=== PATIENT | male | born 1945 | race Caucasian/White ===

== ENCOUNTER 2017-01-08 07:05 | Day surgery (SDC) | payer MEDICARE ==
[~2017-01-08] VITALS: Ht 182.9 cm; Wt 109.6 kg
[2017-01-08 07:43] VITALS: BP 119/69; PULSE 49; RESP 16; TEMP 98.2; O2SAT 96
[2017-01-08] MEDS ORDERED: ASPI1TAB69 PO (07:54)
[2017-01-08] MEDS ORDERED: METF500T PO (07:54)
[2017-01-08] MEDS ORDERED: MULT1TAB84 PO (07:54)
[2017-01-08] MEDS ORDERED: MELO-1 PO (07:54)
[2017-01-08] MEDS ORDERED: ENAL5TAB PO (07:54)
[2017-01-08] MEDS ORDERED: NITR1SUB3 SL (07:54)
[2017-01-08] MEDS ORDERED: LORA-361 PO (07:54)
[2017-01-08] MEDS ORDERED: ATOR40TA16 PO (07:54)
[2017-01-08 07:57] LABS: AUTOMATED NEUTROPHIL # 1.9 TH/MM3 (1.8-7.7); BASOPHIL % 1.4 % (0.0-2.0); EOSINOPHIL % 1.4 % (0.0-4.0); HEMATOCRIT 38.8 % (39.0-51.0); HEMO FLAGS DIFF FINAL; LYMPH % 30.2 % (9.0-44.0); MEAN CELL VOLUME 94.1 FL (80.0-100.0); MEAN CORPUSCULAR HEMOGLOBIN 32.5 PG (27.0-34.0); MEAN CORPUSCULAR HGB CONC 34.6 % (32.0-36.0); MONO % 10.1 % (0.0-8.0); NEUT % 56.9 % (16.0-70.0); PLATELET COUNT 159 TH/MM3 (150-450); RED BLOOD COUNT 4.13 MIL/MM3 (4.50-5.90); RED CELL DISTRIBUTION WIDTH 13.4 % (11.6-17.2); WHITE BLOOD COUNT 3.4 TH/MM3 (4.0-11.0)
[2017-01-08] MEDS ORDERED: NS 1000P @30 MLS/HR (KVO) IV SCH (08:00)
[2017-01-08 08:07] LABS: APTT (PATIENT) 25.9 SEC (24.3-30.1); BICARBONATE 27.6 MEQ/L (21.0-32.0); POTASSIUM 4.1 MEQ/L (3.5-5.1); PROTHROMBIN TIME - PATIENT 10.7 SEC (9.8-11.6)
[2017-01-08] MEDS ORDERED: MIDAZOLAM HCL 2 MG/2 ML VIAL ONE (09:11)
[2017-01-08] MEDS ORDERED: HEPARIN-NS/PF INJ 500 ML ONE (09:11)
[2017-01-08] MEDS ORDERED: SODIUM CHLOR 0.9% 1000 ML INJ 1,000 ML IV SCH (10:18)
[2017-01-08] MEDS ORDERED: SODIUM CHLORIDE 0.9% FLUSH 5 ML FLUSH IVF PRN (10:30)
[2017-01-08] MEDS ORDERED: oxyCODONE/ACETAMINOPHEN 5 MG/325 MG TAB PO PRN (10:30)
[2017-01-08] MEDS ORDERED: ONDANSETRON HCL 4 MG/2 ML VIAL IV PRN (10:30)
--- NOTE | 2017-01-08 10:30 | MA ---
cc: CHRISTI BONNER M.D. DATE: 01/08/2017 PROCEDURE PERFORMED 1. Coronary angiography. 2. Right heart catheterization. 3. Supravalvar aortography. 4. Right femoral angiography with Angio-Seal placement. DESCRIPTION OF PROCEDURE The patient was brought to the cardiac terrazzo laborer in a fasting state. Using 1% lidocaine for local anesthesia a 6.5 Sammarinese sheath was inserted in the right femoral artery and right femoral vein requiring only single sticks each. Right heart catheterization was performed in a standard fashion using a Nelson-Reta catheter. Coronary angiography was then completed using a left 5 Imelda for the left coronary artery and a 3-D RC for the right coronary artery. A straight pigtail catheter was then used to obtain a supravalvular aortogram. Angiography was then obtained of the right femoral artery via the sheath followed by uncomplicated Angio-Seal placement. There were no complications. The venous sheath was pulled manually. FINDINGS HEMODYNAMICS Right atrial pressure was 8/6 with a mean of 3. Right ventricular pressure was 37/0 with an end-diastolic pressure of 4. Pulmonary artery pressure was 24/5 with a mean of 12. Pulmonary capillary wedge pressure was 11/12 with a mean of 8. Aortic pressure was 125/56 with a mean of 81. Cardiac output by thermodilution technique was 5.3 liters per minute. SUPRAVALVULAR AORTOGRAPHY The aortic valve was tricuspid. There was only mild calcification seen. There was no aortic regurgitation. CORONARY ANGIOGRAPHY The coronary circulation is right-dominant. The coronary arteries appear completely normal. The left main trifurcates into the LAD. The LAD appears normal. The ramus intermediate branch is normal The circumflex artery is small and normal. The right coronary artery is dominant and normal. CONCLUSIONS 1. Known severe aortic stenosis that has now become symptomatic with dyspnea on exertion. 2. Normal right heart pressures. 3. Normal coronary arteries. PLAN Refer Dr. Woo for AVR. MD PAL Stephens/THONG /10:16 AM /10:21 AM
[2017-01-08] MEDS ORDERED: IOHEXOL 350 MG/ML 100 ML BTL (for Cath Lab) OTHER ONE (11:37)
--- NOTE | 2017-01-08 12:56 | RADRPT ---
EXAM DATE/TIME: 01/08/2017 11:48 [facility] COMPARISON: No previous studies available for comparison. INDICATIONS : PreOp cardiac surgery. MEDICAL HISTORY : Hypertension. Diabetes. SURGICAL HISTORY : Cardiac catheterization. ENCOUNTER: Initial ACUITY: 1 day PAIN SCORE: 0/10 LOCATION: Bilateral neck PEAK SYSTOLIC VELOCITIES (cm/sec): ICA/CCA RATIO: Right: 1.1 Left: 1.0 ICA: Right: 95 Left: 91 CCA: Right: 90 Left: 93 ECA: Right: 85 Left: 91 VERTEBRAL: Right: 77 antegrade Left: 38 antegrade Elevated flow velocities and ICA/CCA ratios have been found to correlate with increased degrees of vessel stenosis, calculated as percentage of diameter relative to a normal segment of distal ICA/CCA FINDINGS: RIGHT CAROTID: There is no evidence for a hemodynamically significant carotid stenosis. Minimal int imal hyperplasia is present with scattered calcific plaque. LEFT CAROTID: There is no evidence for a hemodynamically significant carotid stenosis. Minimal inti mal hyperplasia is present with scattered calcific plaque. VERTEBRAL ARTERIES: Flow is antegrade in both vertebral arteries. MISCELLANEOUS: There are no ancillary masses or adenopathy. CONCLUSION: Negative examination for a hemodynamically significant carotid stenosis. Christ Sullivan MD FACR Board Certified Radiologist. This report was verified electronically.
[2017-01-08 14:17] LABS: BLOOD, URINE NEG (NEG); GLUCOSE,URINE NEG (NEG); KETONE, URINE NEG (NEG); NITRITE,URINE NEG (NEG); URINE COLOR LIGHT-YELLOW (YELLW/STRAW)
[2017-01-08 14:18] LABS: COMMENT (UR) CULT NOT INDICATED; CULTURE IF INDICATED CULT NOT INDICATED
--- NOTE | 2017-01-08 14:22 | PD.CAR.PN ---
CVT Progress Note Subjective/Hospital Course: sts discussed with pt RISK SCORES About the STS Risk Calculator Procedure: AV Replacement Risk of Mortality: 1.069% Morbidity or Mortality: 10.509% Long Length of Stay: 3.398% Short Length of Stay: 52.422% Permanent Stroke: 0.815% Prolonged Ventilation: 5.115% DSW Infection: 0.332% Renal Failure: 2.984% Reoperation: 5.408% Objective: Vital Signs Date Time Temp Pulse Resp B/P Pulse Ox O2 Delivery O2 Flow Rate FiO2 01/08/17 10:27 Room Air 01/08/17 07:43 98.2 49 16 119/69 96 Labs: Laboratory Tests Test 01/08/17 01/08/17 07:40 13:45 White Blood Count 3.4 TH/MM3 (4.0-11.0) Red Blood Count 4.13 MIL/MM3 (4.50-5.90) Hemoglobin 13.4 GM/DL (13.0-17.0) Hematocrit 38.8 % (39.0-51.0) Mean Corpuscular Volume 94.1 FL (80.0-100.0) Mean Corpuscular Hemoglobin 32.5 PG (27.0-34.0) Mean Corpuscular Hemoglobin 34.6 % Concent (32.0-36.0) Red Cell Distribution Width 13.4 % (11.6-17.2) Platelet Count 159 TH/MM3 (150-450) Mean Platelet Volume 8.9 FL (7.0-11.0) Neutrophils (%) (Auto) 56.9 % (16.0-70.0) Lymphocytes (%) (Auto) 30.2 % (9.0-44.0) Monocytes (%) (Auto) 10.1 % (0.0-8.0) Eosinophils (%) (Auto) 1.4 % (0.0-4.0) Basophils (%) (Auto) 1.4 % (0.0-2.0) Neutrophils # (Auto) 1.9 TH/MM3 (1.8-7.7) Lymphocytes # (Auto) 1.0 TH/MM3 (1.0-4.8) Monocytes # (Auto) 0.3 TH/MM3 (0-0.9) Eosinophils # (Auto) 0.0 TH/MM3 (0-0.4) Basophils # (Auto) 0.0 TH/MM3 (0-0.2) CBC Comment DIFF FINAL Differential Comment Prothrombin Time 10.7 SEC (9.8-11.6) Prothromb Time International 1.0 RATIO Ratio Activated Partial 25.9 SEC Thromboplast Time (24.3-30.1) Sodium Level 141 MEQ/L (136-145) Potassium Level 4.1 MEQ/L (3.5-5.1) Chloride Level 106 MEQ/L (98-107) Carbon Dioxide Level 27.6 MEQ/L (21.0-32.0) Anion Gap 7 MEQ/L (5-15) Blood Urea Nitrogen 14 MG/DL (7-18) Creatinine 0.87 MG/DL (0.60-1.30) Estimat Glomerular Filtration 87 ML/MIN (>89) Rate Random Glucose 157 MG/DL (74-106) Calcium Level 8.7 MG/DL (8.5-10.1) Urine Color LIGHT-YELLOW (YELLW/STRAW) Urine Turbidity CLEAR (CLEAR) Urine pH 7.0 (5.0-8.5) Urine Specific [place] 1.020 (1.002-1.035) Urine Protein NEG mg/dL (NEG-TRACE) Urine Glucose (UA) NEG mg/dL (NEG) Urine Ketones NEG mg/dL (NEG) Urine Occult Blood NEG (NEG) Urine Nitrite NEG (NEG) Urine Bilirubin NEG (NEG) Urine Urobilinogen LESS THAN 2.0 MG/DL (LESS THAN 2.0) Urine Leukocyte Esterase NEG (NEG) Microscopic Urinalysis Comment CULT NOT INDICATED Result Diagram: 01/08/17 0740 01/08/17 0740 Noy Munoz Jan 08, 2017 14:22
--- NOTE | 2017-01-08 15:34 | RADRPT ---
EXAM DATE/TIME: 01/08/2017 15:15 [facility] COMPARISON: No previous studies available for comparison. INDICATIONS : Evaluate for pneumonia, pneumothorax, and commicable disease. Pre op for heart valve replacement. MEDICAL HISTORY : Prior right side rib fracture with chest tube placement. SURGICAL HISTORY : None. ENCOUNTER: Initial ACUITY: 1 day PAIN SCORE: 0/10 LOCATION: Bilateral chest FINDINGS: PA and lateral views of the chest demonstrate the lungs to be symmetrically aerated without evidence of mass, infiltrate or effusion. The cardiomediastinal contours are unremarkable. Old rib fractures as seen on the right. CONCLUSION: No acute disease. Christ Sullivan MD FACR on January 08, 2017 at 15:29 Board Certified Radiologist. This report was verified electronically.
--- NOTE | 2017-01-08 15:38 | MB ---
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 He has been able to do some exercising but has had a little bit of intolerance. Denies having any syncope. No presyncope. No chest pain. No palpitations. He underwent cardiac cath today after having a recent 2-D echo which showed an EF of 65-70%, mild LVH. Aortic valve had a peak gradient of 70, a mean gradient of 37 mmHg, valve area 0.73, mild mitral regurgitation, trivial tricuspid regurgitation. Apparently the mean gradient was 29 in October 2015 and now is 37. He underwent cardiac cath today by Dr. Leggett electively which showed no evidence of coronary disease, right-sided heart pressures had a right atrial pressure of 8/6 with a mean of 3, RV systolic pressure 37 with an end-diastolic of 4, PA pressure 24 with a mean of 12, capillary wedge pressure of 11 and cardiac output 5.3. The aortic valve was tricuspid with only mild calcification. Coronary arteriography showed right dominant system. We were consulted to evaluate for aortic valve replacement. PAST MEDICAL HISTORY 1. Aortic stenosis. 2. Sleep apnea. He uses a CPAP at night but has not had to in a while since he lost about 15 pounds. His says he does not snore any more. 3. Diabetes mellitus type 2. 4. Hyperlipidemia. 5. History of prostate cancer 2010. 6. Skin cancer. PAST SURGICAL HISTORY 1. Cataract surgery. 2. History of a collapsed lung in the past. 3. Prostate seed implant with radiation therapy in 2011. ALLERGIES HE HAS HAD SOME NAUSEA RELATED TO ANESTHESIA, APPARENTLY SOME LOW TOLERANCE BUT NO ANAPHYLAXIS NO RASH. MEDICATIONS Home meds include: 1. Aspirin 81, daily. 2. Atorvastatin 40, daily. 3. Claritin. 4. Enalapril 5, p.o. daily. 5. Fish oil. 6. Mobic. 7. Metformin 500, b.i.d. FAMILY HISTORY Father at 96 with history of coronary artery bypass graft and valve replacement. Mother from CHF. SOCIAL HISTORY The patient is , two children. Occasional alcohol. 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 No tobacco. REVIEW OF SYSTEMS GENERAL: In general no night sweats, fever, heat or cold intolerance. SKIN: No psoriasis, itching or hives. HEENT: No blurred vision, hearing loss. RESPIRATORY: Positive for recent shortness of breath. CARDIOVASCULAR: As above in the HPI. GASTROINTESTINAL: No diarrhea or vomiting. GENITOURINARY: No burning, frequency, urgency. 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 ENDOCRINE: Positive for diabetes. PHYSICAL EXAMINATION VITAL SIGNS: Blood pressure 120/70, heart rate 50, afebrile. GENERAL: Patient is awake and alert, in no acute distress. HEENT: Head is normocephalic, atraumatic. Pupils equal and reactive. Oral mucosa pink and moist. NECK: Supple. No JVD. HEART: Heart sounds S1, S2. 2-3/6 systolic murmur best heard on the right sternal border. LUNGS: Clear to auscultation. No wheezes, rales or rhonchi. ABDOMEN: Soft, nontender. No masses or organomegaly. He has a dressing on his right groin from his cath site. EXTREMITIES: No cyanosis, clubbing or edema. LABORATORY Hemoglobin 13, hematocrit 38, white cell count 3.4, platelet count 159. Sodium 141, potassium 4.1, BUN 14, creatinine 0.87. Hemoglobin A1c is pending. INR 1.0. Urinalysis pending. MRSA pending. IMAGING Carotid ultrasound negative for any significant stenosis. EKG EKG showed sinus bradycardia, nonspecific T-wave. IMPRESSION AND PLAN This is a very pleasant 71-year-old male with history of aortic stenosis now with a valve area 0.73, peak gradient of 69 and a mean gradient of 37, status post cath with normal coronaries, EF 60-65. Procedures, alternatives and risks have been discussed with the patient per Dr. Diana Woo. Plan will be for aortic valve replacement on FridayJanuary 14. The patient will have further testing prior to discharge. He is agreeable to proceed. Will plan as above. Further planning per Dr. Woo. Dictated by: GRUPO Krishnan Diana MD RAMÓN Miller /2:27 PM /3:36 PM
[2017-01-08 17:16] LABS: HEMOGLOBIN A1a 1.1 %; HEMOGLOBIN A1b 0.9 %; HEMOGLOBIN F 1.3 %; HEMOGLOBIN LA1C 2.3 %
--- NOTE | 2017-01-08 18:26 | EKG ---
Date Performed: 01/08/2017 Time Performed: 07:53:16 PTAGE: 71 years EKG: Sinus bradycardia Minimal ST elevations, possible early repolarization Borderline ECG NO PREVIOUS TRACING DOCTOR: Matthew Roach Interpretating Date/Time 01/08/2017 18:23:59
--- NOTE | 2017-01-08 19:54 | EKG ---
Date Performed: 01/08/2017 Time Performed: 12:12:48 PTAGE: 71 years EKG: Sinus bradycardia Septal T wave changes are nonspecific Borderline ECG NO SIGNIFICANT GARDUNO E FROM PRIOR ELECTROCARDIOGRAM. PREVIOUS TRACING : 01/08/2017 07.53 DOCTOR: Kailash Denton Interpretating Date/Time 01/08/2017 19:53:35
[2017-01-08 20:21] LABS: HEMOGLOBIN Ao 82.8 %
[2017-01-08] MEDS ORDERED: SODIUM CHLORIDE 0.9% FLUSH 5 ML FLUSH IVF SCH (21:00)
--- NOTE | 2017-03-12 14:09 | RSPPFT ---
DATE OF PROCEDURE: 01/08/17 COMMENTS: VOLUMES DYNAMIC: FVC and FEV1 normal. FLOWS: FEV1% and FEF 25-75 normal. IMPRESSION: Normal simple spirometry.
== END 2017-01-08 15:30 | disposition home or self-care (01) ==
LOC: HDOC 07:05 → HDIC 07:06 → HDOC 15:30
PROVIDERS: ATTEND Internal Medicine Cardiovascular Disease
DX: I35.0 Nonrheumatic aortic (valve) stenosis (principal); I34.0 Nonrheumatic mitral (valve) insufficiency; I10 Essential (primary) hypertension; E11.9 Type 2 diabetes mellitus without complications; E78.5 Hyperlipidemia, unspecified; Z79.82 Long term (current) use of aspirin; Z79.84 Long term (current) use of oral hypoglycemic drugs; Z85.46 Personal history of malignant neoplasm of prostate; Z85.828 Personal history of other malignant neoplasm of skin; Z01.818 Encounter for other preprocedural examination
CPT/HCPCS: 71020; 80048; 81001; 83036; 85025; 85610; 85730; 87641; 93005; 93456; 93567; 93880; 94010; C1760; C1769; C1893; G0269; J1644; J2250; Q9967

== ENCOUNTER 2017-01-10 15:01 | Inpatient (IN) | payer MEDICARE ==
[~2017-01-10] VITALS: Ht 185.4 cm; Wt 111.5 kg
[~2017-01-10 15:01] MED LIST: ASPI1TAB69 PO; ATOR40TA16 PO; ENAL5TAB PO; LORA-361 PO; MELO-1 PO; METF500T PO; MULT1TAB84 PO; NITR1SUB3 SL
[2017-01-14] VITALS (11 sets, daily range): BP systolic 102–132; BP diastolic 54–66; PULSE 53–67; RESP 16–20; TEMP 98.1–98.6; O2SAT 94–99
[2017-01-14] MEDS ORDERED: VECURONIUM BROMIDE 10 MG VIAL IV ONE (05:00)
[2017-01-14] MEDS ORDERED: ETOMIDATE 40 MG/20 ML VIAL IV PUSH ONE (05:00)
[2017-01-14] MEDS ORDERED: CALCIUM GLUCONATE 10% 1 GM/10 ML VIAL IV ONE (05:00)
[2017-01-14] MEDS ORDERED: MAGNESIUM SULFATE 1000 MG/2 ML VIAL (PED) IV ONE (05:00)
[2017-01-14] MEDS ORDERED: AMINOCAPROIC ACID INJ 250 MG/ML 20 ML VIAL IV ONE ×2 (05:00→12:31)
[2017-01-14] MEDS ORDERED: DEXMEDETOMIDINE INJ 50 ML IV ONE (05:00)
[2017-01-14] MEDS ORDERED: CALCIUM CHLORIDE 10% SOLN 1 GRAM/10 ML SYR IV ONE (05:00)
[2017-01-14] MEDS ORDERED: ARTIFICIAL TEARS OPTH OINT 3.5 APPLIC/3.5 GM TUBO ONE (05:00)
[2017-01-14] MEDS ORDERED: ceFAZolin INJ 1,000 MG VIAL IV ONE ×3 (05:00→13:29)
[2017-01-14] MEDS ORDERED: HEPARIN SODIUM - SQ 10,000 UNITS/ML VIAL SQ ONE (05:00)
[2017-01-14] MEDS ORDERED: GLYCOPYRROLATE 0.2 MG/ML VIAL IV ONE (05:00)
[2017-01-14] MEDS ORDERED: PROTAMINE SULFATE 250 MG/25 ML VIAL IV ONE (05:00)
[2017-01-14] MEDS ORDERED: NITROGLYCERIN-DEXTROSE INJ 250 ML IV ONE (05:00)
[2017-01-14] MEDS ORDERED: DOPamine INJ PREMIX 500 ML IV ONE (05:00)
[2017-01-14] MEDS ORDERED: PHENYLEPHRINE HCL 10 MG/ML VIAL IV ONE (05:00)
[2017-01-14] MEDS ORDERED: LIDOCAINE HCL 1% 30 ML VIAL OTHER ONE (05:00)
[2017-01-14] MEDS ORDERED: POTASSIUM CHLORIDE 20 MEQ/10 ML VIAL ONE (06:26)
[2017-01-14] MEDS ORDERED: CUSTODIOL HTK IRR SOLN 1,000 ML ONE (06:26)
[2017-01-14] MEDS ORDERED: MANNITOL INJ 50 ML ONE (06:27)
[2017-01-14] MEDS ORDERED: SODIUM BICARBONATE 8.4% INJ 50 ML ONE (06:27)
[2017-01-14] MEDS ORDERED: ALBUMIN HUMAN 25% 12.5 GM/50 ML BAGP IV ONE (06:28)
[2017-01-14] MEDS ORDERED: HEPARIN SODIUM - SQ 10,000 UNITS/ML VIAL ONE ×2 (06:28→08:00)
[2017-01-14] MEDS ORDERED: HEPARIN SODIUM - IV 10,000 UNITS/10 ML VIAL ONE ×2 (06:28→15:46)
[2017-01-14] MEDS ORDERED: METOPROLOL TARTRATE 25 MG TAB ONE (06:29)
[2017-01-14] MEDS: LACTATED RINGER'S 1000 ML IV SCH ×2 (06:30→10:55)
[2017-01-14] MEDS: SODIUM CHLORID 0.9% 500 ML IV SCH ×2 (06:45→10:56)
[2017-01-14] MEDS ORDERED: INSULIN REGULAR 100 UNITS in NS 100 ML IV SCH (06:45)
[2017-01-14] MEDS ORDERED: CHLORHEXIDINE GLUCONATE 4% SOLN 120 ML BTL TOPICAL SCH (06:45)
[2017-01-14] MEDS ORDERED: ceFAZolin 2 GM PREMIX 50 ML IV SCH (06:45)
[2017-01-14] MEDS ORDERED: METOPROLOL TARTRATE 25 MG TAB PO PRN (06:45)
[2017-01-14] MEDS ORDERED: CEFAZOLIN 500 MG in NS IRR BTL 500 ML IRRIGATION SCH (06:45)
[2017-01-14] MEDS ORDERED: INSULIN HUMAN REGULAR 1,000 UNITS/10 ML VIAL SQ PRN (06:45)
[2017-01-14] MEDS ORDERED: NATU400T PO (06:59)
[2017-01-14] MEDS: METOPROLOL TARTRATE 25 MG TAB PO SCH ×2 (07:00→07:18)
[2017-01-14] MEDS ORDERED: VANCOMYCIN HCL 1000 MG VIAL ONE (07:59)
[2017-01-14] MEDS ORDERED: methylPREDNISolone SOD SUCC 125 MG/2 ML VIAL ONE (08:00)
[2017-01-14] MEDS ORDERED: BUPIVACAINE HCL PF 0.5% 30 ML VIAL ONE (08:24)
[2017-01-14] MEDS ORDERED: SODIUM CHLOR 0.9% 1000 ML INJ 2,000 ML IV ONE (12:31)
[2017-01-14] MEDS ORDERED: SODIUM CHLORID 0.9% 500 ML INJ 500 ML IV ONE (12:31)
[2017-01-14] MEDS ORDERED: SODIUM CHLOR 0.9% 250 ML INJ 250 ML IV ONE (12:31)
[2017-01-14] MEDS ORDERED: LACTATED RINGER'S 1000 ML INJ 2,000 ML IV ONE (12:31)
[2017-01-14] MEDS ORDERED: SODIUM CHLORIDE 0.9% INJ 100 ML IV ONE (12:31)
[2017-01-14] MEDS ORDERED: POTASSIUM CHLOR 40 MEQ PREMIX 100 ML ONE (15:46)
[2017-01-14] MEDS ORDERED: LACTATED RINGER'S 1000 ML INJ 500 ML IV PRN (16:31)
[2017-01-14] MEDS ORDERED: METOPROLOL TARTRATE 5 MG/5 ML VIAL IV PUSH PRN (16:45)
[2017-01-14] MEDS ORDERED: ONDANSETRON HCL 4 MG/2 ML VIAL IV PUSH PRN (16:45)
[2017-01-14] MEDS ORDERED: Post-op Orders (for Pharmacy) MISC OTHER ONE (16:45)
[2017-01-14] MEDS ORDERED: MAGNESIUM SULFATE INJ 2 GM in SODIUM CHLORIDE 0.9% INJ 100 ML IV PRN ×4 (16:45)
[2017-01-14] MEDS ORDERED: DEXTROSE 50% IN WATER 50 ML VIAL(D50) IV PUSH PRN (16:45)
[2017-01-14] MEDS ORDERED: CALCIUM CHLORIDE INJ 1 GM in SODIUM CHLORIDE 0.9% INJ 100 ML IV PRN (16:45)
[2017-01-14] MEDS ORDERED: POTASSIUM CHLORIDE 20 MEQ CONTROLLED RELEASE TAB PO PRN ×2 (16:45)
[2017-01-14] MEDS ORDERED: ACETAMINOPHEN 650 MG SUPP RECTAL PRN (16:45)
[2017-01-14] MEDS ORDERED: hydrALAZINE HCL 20 MG/ML VIAL IV PRN (16:45)
[2017-01-14] MEDS ORDERED: POTASSIUM CHLOR 20 MEQ PREMIX 100 ML IV PRN ×3 (16:45)
[2017-01-14] MEDS ORDERED: CLEVIDIPINE INJ 50 ML IV SCH (16:45)
[2017-01-14] MEDS ORDERED: INSULIN REGULAR (IV INFUSION) 100 UNITS in SODIUM CHLORIDE 0.9% INJ 99 ML IV SCH (16:45)
[2017-01-14] MEDS ORDERED: CALCIUM CHLORIDE 10% 1 GRAM/10 ML VIAL IV PRN (16:45)
[2017-01-14] MEDS ORDERED: ACETAMINOPHEN 325 MG TAB PO PRN (16:45)
[2017-01-14] MEDS ORDERED: KETOROLAC TROMETHAMINE 30 MG/ML (IVP) VIAL IV PUSH PRN (16:45)
[2017-01-14] MEDS ORDERED: SODIUM CHLORIDE 0.9% FLUSH 5 ML FLUSH IV FLUSH PRN (16:45)
[2017-01-14] MEDS ORDERED: fentaNYL CITRATE 1000 MCG/20 ML VIAL ONE (16:53)
[2017-01-14] MEDS ORDERED: MIDAZOLAM HCL 5 MG/5 ML VIAL ONE ×2 (16:53)
--- NOTE | 2017-01-14 16:55 | PD.OP ---
cc: Diana Woo MD; Ridge Leggett MD Operative Report Date of Surgery: Jan 14, 2017 Preoperative Diagnosis: (1) Aortic stenosis Postoperative Diagnosis: same Procedure: Minimally invasive AVR with a 25 Oneil Intuity Tissue valve DEX Left femoral cutdown for cannulation Femoral-femoral CPB Anesthesia: Dr. Sanabria Surgeon: Diana Woo Top Stop Attacher(s): Pavan Ruano Operation and Findings: The risks, benefits, complications, treatment options, and expected outcomes were discussed with the patient. The possibilities of reaction to medication, pulmonary aspiration, perforation of viscus, bleeding, recurrent infection, the need for additional procedures, failure to diagnose a condition, and creating a complication requiring transfusion or operation were discussed with the patient. The patient concurred with the proposed plan, giving informed consent. The site of surgery properly noted/marked. The patient was taken to Operating Room, identified as Harjit Mcclain and the procedure verified as Minimally Invasive Aortic Valve Replacement. A Time Out was held and the above information confirmed. Standard monitoring lines and Mosley catheter were placed. General anesthesia was induced. The patient was prepped and draped in a sterile fashion. A 3 cm incision was performed in the left groin and the femoral artery and vein were exposed. The patient was heparinized for cardiopulmonary bypass. The left femoral artery was cannulated with a 19 [employer] arterial cannula. The left femoral vein was cannulated with a 21 [employer] cannula under DEX guidance. A 6 cm right anterior thoracotomy was performed and the 3rd rib was shingled. The right internal mammary artery and vein were ligated and divided. An Bart retractor was placed followed by a small chest retractor. The pericardium was opened and a pericardial sling was created using interrupted 0 silk sutures. A small 1 cm incision was made at the 6th intercostal space and an LV vent and pericardial suction were placed through this access port. The aorta was dissected posteriorly for crossclamp placement. Antegrade Custodiol cardioplegia was employed. Additionally, hand-held coronary cardioplegia cannula was used during the procedure. The patient was placed on cardiopulmonary bypass. An aortic cross-clamp was applied and the heart was arrested using cold blood cardioplegia delivered through a 14F catheter. The aorta was opened above the sinotubular ridge and the aortic valve was exposed. The right and left coronary was directly cannulated in addition and cardioplegia was administered. On opening the aorta, the valve appeared trileaflet with moderate calcification. The valve was resected as well as all annular calcification, and sized for a 25 Oneil Intuity balloon deployed tissue valve. The LV and aorta were copiously irrigated with cold saline. Three positioning sutures were placed - one in each sinus. The valve seated well and was deployed. The aorta was closed with running 4-0 Prolene suture. The patient systemically rewarmed and received a hotshot dose of warm blood cardioplegia. The heart was vigorously deaired with a clamp on. The clamp was removed, deairing continued. The patient was easily weaned from cardiopulmonary bypass. Decannulation was carried out without incident and both the femoral vessels were repaired with 5- 0 prolene suture. Protamine was given. There was no adverse reaction. Intraoperative DEX following the procedure showed a well-seated aortic valve with no perivalvular leak and preserved ventricular function. Wound was checked for hemostasis was obtained using electrocautery. The 3rd rib was reapproximated to the sternum and adjacent rib with a 0 Vicryl suture and a external plate fixation system. The fascia and pectoralis were closed with 0 Vicryl. The subcutaneous tissue was closed using a running 3-0 Monocryl suture. The skin was closed with 4-0 Monocryl. The groin was closed in 2 layers. Sterile dressings were placed. At the end of the operation, all sponge, instruments, and needle counts were correct. The patient was transferred to the CVICU in stable condition. Diana Woo MD Jan 14, 2017 16:55
--- NOTE | 2017-01-14 17:10 | RADRPT ---
EXAM DATE/TIME: 01/14/2017 16:47 [facility] COMPARISON: CHEST PA & LAT, January 08, 2017, 15:15. INDICATIONS : Status post CABG with intubation and central line placement.. MEDICAL HISTORY : Right rib fracture. SURGICAL HISTORY : CABG. ENCOUNTER: Initial ACUITY: 1 day PAIN SCORE: Non-responsive. LOCATION: Bilateral chest FINDINGS: A single AP semierect view of the chest was obtained and demonstrates interval intubation with the en dotracheal tube tip above level of thoracic inlet approximately 9 cm above the catherine. A nasogastric tube is seen coursing through the esophagus into the stomach. There's been placement of a left subcla vian central venous line and sheath with no pneumothorax. There is a right-sided chest tube in place. There are multiple old right rib fractures. There is atelectasis of the right lung base. The heart s ize remains within normal limits. Overlying electrocardiogram leads and oxygen tubing are present. A small screw plate fixation device is projected over the central chest. CONCLUSION: 1. Interval intubation and central line placement with no pneumothorax. 2. Atelectasis at the right lung base. Cyrus Piña MD on January 14, 2017 at 17:06 Board Certified Radiologist. This report was verified electronically.
[2017-01-14] MEDS: ACETAMINOPHEN 1000 MG/100 ML VIAL IV SCH (18:00)
[2017-01-14] MEDS: ceFAZolin 2 GM PREMIX 50 ML IV SCH (19:56)
[2017-01-14] MEDS: SODIUM CHLORIDE 0.9% FLUSH 5 ML FLUSH IV FLUSH SCH (19:57)
[2017-01-14] MEDS: ATORVASTATIN 40 MG TAB PO SCH (19:57)
[2017-01-14] MEDS: METOCLOPRAMIDE HCL 10 MG/2 ML VIAL IV PUSH SCH (19:57)
[2017-01-15] VITALS (19 sets, daily range): BP systolic 101–127; BP diastolic 49–62; PULSE 55–88; RESP 16–24; TEMP 97.6–99.3; O2SAT 92–99
--- NOTE | 2017-01-15 05:06 | RADRPT ---
EXAM DATE/TIME: 01/15/2017 04:09 [facility] COMPARISON: CHEST SINGLE AP, January 14, 2017, 16:47. INDICATIONS : Shortness of breath, possible pulmonary disease. MEDICAL HISTORY : None. SURGICAL HISTORY : CABG. ENCOUNTER: Subsequent ACUITY: 2 days PAIN SCORE: Non-responsive. LOCATION: Bilateral chest FINDINGS: The cardiac silhouette is normal in transverse diameter. Support lines and tubes are in satisfactory position. A right chest tube is in place. There is no evidence of pneumothorax. The lungs are free of acute parenchymal opacity. No effusions are identified. CONCLUSION: 1. No acute cardiopulmonary disease. There is no evidence of pneumothorax. Dhruv Calvert MD on January 15, 2017 at 5:04 Board Certified Radiologist. This report was verified electronically.
[2017-01-15] MEDS: ceFAZolin 2 GM PREMIX 50 ML IV SCH ×3 (05:09→20:21)
[2017-01-15] MEDS: ACETAMINOPHEN 1000 MG/100 ML VIAL IV SCH ×3 (05:10→12:57)
[2017-01-15] MEDS: PANTOPRAZOLE SOD 40 MG DELAYED RELEASE TAB PO SCH (05:13)
[2017-01-15] MEDS: METOCLOPRAMIDE HCL 10 MG/2 ML VIAL IV PUSH SCH ×4 (05:14→20:20)
[2017-01-15 05:26] LABS: HEMATOCRIT 37.9 % (39.0-51.0); MEAN CELL VOLUME 94.8 FL (80.0-100.0); MEAN CORPUSCULAR HEMOGLOBIN 32.2 PG (27.0-34.0); PLATELET COUNT 106 TH/MM3 (150-450); RED CELL DISTRIBUTION WIDTH 13.8 % (11.6-17.2); REVIEW FLAG FINAL; WHITE BLOOD COUNT 16.1 TH/MM3 (4.0-11.0)
[2017-01-15 05:55] LABS: BICARBONATE 23.1 MEQ/L (21.0-32.0); MAGNESIUM 2.1 MG/DL (1.5-2.5); POTASSIUM 4.3 MEQ/L (3.5-5.1)
[2017-01-15] MEDS: SODIUM CHLORIDE 0.9% FLUSH 5 ML FLUSH IV FLUSH SCH ×2 (08:11→20:21)
[2017-01-15] MEDS: MULTIVITAMINS/MINERALS THERAPEUTIC TAB PO SCH (08:11)
[2017-01-15] MEDS: LORATADINE 10 MG TAB PO SCH (08:12)
[2017-01-15] MEDS: oxyCODONE/ACETAMINOPHEN 5 MG/325 MG TAB PO PRN ×3 (08:12→20:22)
[2017-01-15] MEDS: ASPIRIN EC 81 MG TABEC PO SCH (08:12)
[2017-01-15] MEDS ORDERED: ASPIRIN 81 MG CHEW TAB PO SCH (09:00)
[2017-01-15] MEDS ORDERED: SOD PHOSPHATE/SOD BIPHOSPHATE (ADULT) ENEMA 133ML RECTAL PRN (09:30)
[2017-01-15] MEDS ORDERED: GLUCAGON 1 MG/ML VIAL OTHER PRN (09:30)
[2017-01-15] MEDS ORDERED: BISACODYL 10 MG SUPP RECTAL PRN (09:30)
[2017-01-15] MEDS ORDERED: DEXTROSE 50% IN WATER 50 ML VIAL(D50) IV PRN (09:30)
--- NOTE | 2017-01-15 09:37 | PD.CAR.PN ---
CVT Progress Note Subjective/Hospital Course: 71 male/ hx of severe , underwent LHC&RHC by Dr Leggett, normal coronaries, EF 65%, admitted as outpt underwent: surgery : 01/14 Minimally invasive AVR with a 25 Oneil Elite Tissue valve, DEX , Left femoral cutdown for cannulation, Femoral-femoral CPB 4600 crystalloid, cellsaver 1800cc, 250EBL, 1600urine , extubated post surgery 6 hr surgery + 3 kg 01/15 up in chair, weaning off insulin gtt HR sinus bruce, BP stable gentle diuresis , OOB , aggressive pulm toileting start plavix tommorow on baby ASA chest tube drained 184cc/ 12 hr transfer to stepdown Objective: Vital Signs Date Time Temp Pulse Resp B/P Pulse Ox O2 Delivery O2 Flow Rate FiO2 01/15/17 07:18 94 Nasal Cannula 3.00 01/15/17 07:00 98.4 56 16 127/50 94 127/50 01/15/17 07:00 59 01/15/17 03:45 95 Nasal Cannula 3.00 01/15/17 03:00 99.3 56 16 101/51 94 101/52 01/15/17 03:00 55 01/15/17 00:56 99 28 01/14/17 23:00 55 01/14/17 23:00 98.2 55 16 108/54 96 119/57 01/14/17 22:15 94 28 01/14/17 21:30 98.2 01/14/17 20:11 96 28 01/14/17 19:10 28 01/14/17 19:00 98.2 67 16 102/54 96 01/14/17 19:00 67 01/14/17 18:19 99 28 01/14/17 18:15 98.6 01/14/17 17:15 96 Venturi Mask 28 01/14/17 17:00 62 01/14/17 17:00 35 01/14/17 17:00 98.2 63 19 129/64 97 132/60 01/14/17 17:00 98.6 01/14/17 16:53 97 Nasal Cannula 3.00 01/14/17 16:53 96 Nasal Cannula 2 01/14/17 16:53 96 35 01/14/17 16:40 40 Labs: Laboratory Tests Test 01/15/17 04:55 White Blood Count 16.1 TH/MM3 (4.0-11.0) Red Blood Count 4.00 MIL/MM3 (4.50-5.90) Hemoglobin 12.9 GM/DL (13.0-17.0) Hematocrit 37.9 % (39.0-51.0) Mean Corpuscular Volume 94.8 FL (80.0-100.0) Mean Corpuscular Hemoglobin 32.2 PG (27.0-34.0) Mean Corpuscular Hemoglobin 34.0 % Concent (32.0-36.0) Red Cell Distribution Width 13.8 % (11.6-17.2) Platelet Count 106 TH/MM3 (150-450) Mean Platelet Volume 9.2 FL (7.0-11.0) Sodium Level 143 MEQ/L (136-145) Potassium Level 4.3 MEQ/L (3.5-5.1) Chloride Level 110 MEQ/L (98-107) Carbon Dioxide Level 23.1 MEQ/L (21.0-32.0) Anion Gap 10 MEQ/L (5-15) Blood Urea Nitrogen 19 MG/DL (7-18) Creatinine 0.86 MG/DL (0.60-1.30) Estimat Glomerular Filtration 88 ML/MIN (>89) Rate Random Glucose 154 MG/DL (74-106) Calcium Level 8.5 MG/DL (8.5-10.1) Magnesium Level 2.1 MG/DL (1.5-2.5) Result Diagram: 01/15/1745401/15/17454 Telemetry: NSR (1) Aortic stenosis (2) s/p mini AVR Plan: chest tube to wall suction , no air leak on ASA, no BB , sinus bruce resume home statin aggressive pulm toileting OOB, ambulate transfer to stepdown (3) Diabetes mellitus Plan: wean off insulin gtt start metformin in am diabetic diet consult early childhood special educator (4) Obstructive sleep apnea Plan: has CPAP , but not using at home (5) History of prostate cancer (6) Hyperlipemia Plan: resume statin Noy Munoz Jan 15, 2017 09:37
[2017-01-15] MEDS ORDERED: INSULIN DETEMIR 100 UNITS/ML VIAL SQ ONE (10:00)
[2017-01-15] MEDS: DOCUSATE SODIUM 100 MG CAP PO SCH ×2 (10:09→20:20)
[2017-01-15] MEDS: INSULIN ASPART SUPPLEMENTAL SCALE SQ SCH ×7 (10:11→22:00)
[2017-01-15] MEDS: RESP: ALBUTEROL 2.5 MG/IPRATROPIUM 0.5 MG NEB (SCH) NEB ×2 (13:08→19:45)
[2017-01-15] MEDS: SENNOSIDES 8.6 MG TAB PO SCH (20:20)
[2017-01-15] MEDS: ATORVASTATIN 40 MG TAB PO SCH (20:20)
[2017-01-15] MEDS: INSULIN DETEMIR 100 UNITS/ML VIAL SQ SCH (20:21)
[2017-01-16] VITALS (26 sets, daily range): BP systolic 101–132; BP diastolic 53–61; PULSE 65–178; RESP 16–20; TEMP 97.9–98.7; O2SAT 88–95
[2017-01-16] MEDS: oxyCODONE/ACETAMINOPHEN 5 MG/325 MG TAB PO PRN ×2 (00:25→02:43)
[2017-01-16] MEDS ORDERED: AMIODARONE 150 MG/D5W 97 ML BOLUS 10 MINUTES IV ONE ×2 (01:15)
[2017-01-16] MEDS: AMIODARONE 200 MG TAB PO SCH ×4 (01:36→21:23)
[2017-01-16] MEDS: INSULIN ASPART SUPPLEMENTAL SCALE SQ SCH ×6 (02:00→21:23)
[2017-01-16] MEDS: METOCLOPRAMIDE HCL 10 MG/2 ML VIAL IV PUSH SCH ×2 (05:21→11:39)
[2017-01-16] MEDS: ceFAZolin 2 GM PREMIX 50 ML IV SCH (05:21)
[2017-01-16] MEDS: PANTOPRAZOLE SOD 40 MG DELAYED RELEASE TAB PO SCH (05:22)
[2017-01-16 05:40] LABS: AUTOMATED NEUTROPHIL # 10.6 TH/MM3 (1.8-7.7); BASOPHIL % 0.2 % (0.0-2.0); HEMATOCRIT 34.2 % (39.0-51.0); LYMPH % 7.3 % (9.0-44.0); LYMPHOCYTE # 0.9 TH/MM3 (1.0-4.8); MEAN CELL VOLUME 94.7 FL (80.0-100.0); MEAN CORPUSCULAR HEMOGLOBIN 32.2 PG (27.0-34.0); NEUT % 85.5 % (16.0-70.0); PLATELET COUNT 84 TH/MM3 (150-450); RED BLOOD COUNT 3.62 MIL/MM3 (4.50-5.90); RED CELL DISTRIBUTION WIDTH 14.1 % (11.6-17.2); WHITE BLOOD COUNT 12.4 TH/MM3 (4.0-11.0)
[2017-01-16 05:42] LABS: HEMO FLAGS AUTO DIFF
[2017-01-16 06:08] LABS: BICARBONATE 27.4 MEQ/L (21.0-32.0); MAGNESIUM 2.3 MG/DL (1.5-2.5); POTASSIUM 3.9 MEQ/L (3.5-5.1)
[2017-01-16 06:59] LABS: PLATELET ESTIMATE SMEAR LOW (NORMAL); PLATELET MORPHOLOGY NORMAL (NORMAL); SCAN/DIFF AUTO DIFF CONFIRMED
[2017-01-16] MEDS ORDERED: AMIODARONE INJ 150 MG in DEXTROSE 5% IN WATER 100ML INJ 97 ML IV ONE ×2 (07:15)
[2017-01-16] MEDS: RESP: ALBUTEROL 2.5 MG/IPRATROPIUM 0.5 MG NEB (SCH) NEB ×3 (07:45→19:52)
[2017-01-16] MEDS: POLYETHYLENE GLYCOL 17 GM PKG PO SCH (08:13)
[2017-01-16] MEDS: MAGNESIUM HYDROXIDE SUSP 30 ML CUP PO SCH (08:13)
[2017-01-16] MEDS: DOCUSATE SODIUM 100 MG CAP PO SCH ×2 (08:14→21:23)
[2017-01-16] MEDS: MULTIVITAMINS/MINERALS THERAPEUTIC TAB PO SCH ×2 (08:14→08:15)
[2017-01-16] MEDS: ASPIRIN EC 81 MG TABEC PO SCH (08:14)
[2017-01-16] MEDS: LORATADINE 10 MG TAB PO SCH (08:14)
[2017-01-16] MEDS: SODIUM CHLORIDE 0.9% FLUSH 5 ML FLUSH IV FLUSH SCH ×2 (08:14→21:24)
[2017-01-16] MEDS: metFORMIN HCL 500 MG TAB PO SCH ×2 (08:14→17:17)
[2017-01-16] MEDS: INSULIN DETEMIR 100 UNITS/ML VIAL SQ SCH ×2 (08:15→21:23)
[2017-01-16] MEDS: POTASSIUM CHLOR 20 MEQ PREMIX 100 ML IV SCH ×2 (08:15→10:29)
[2017-01-16] MEDS ORDERED: POTASSIUM CHLORIDE 10 MEQ CONTROLLED RELEASE TAB PO SCH (09:00)
[2017-01-16] MEDS ORDERED: MAGNESIUM SULFATE 1 GM PREMIX 100 ML IV ONE (11:00)
[2017-01-16] MEDS ORDERED: METOPROLOL TARTRATE 25 MG TAB PO SCH (11:00)
[2017-01-16] MEDS ORDERED: PILL SPLITTER OTHER PRN (11:00)
[2017-01-16] MEDS ORDERED: AMIODARONE INJ 450 MG in DEXTROSE 5% IN WATE(EXCEL) INJ 250 ML IV SCH ×2 (12:00)
--- NOTE | 2017-01-16 12:16 | PD.CAR.PN ---
CVT Progress Note Subjective/Hospital Course: 71 male/ hx of severe , underwent LHC&RHC by Dr Leggett, normal coronaries, EF 65%, admitted as outpt underwent: surgery : 01/14 Minimally invasive AVR with a 25 Oneil Elite Tissue valve, DEX , Left femoral cutdown for cannulation, Femoral-femoral CPB 4600 crystalloid, cellsaver 1800cc, 250EBL, 1600urine , extubated post surgery 6 hr surgery + 3 kg 2 up in chair, weaning off insulin gtt HR sinus bruce, BP stable gentle diuresis , OOB , aggressive pulm toileting start plavix tommorow on baby ASA chest tube drained 184cc/ 12 hr transfer to stepdown Objective: Vital Signs Date Time Temp Pulse Resp B/P Pulse Ox O2 Delivery O2 Flow Rate FiO2 01/16/17 12:00 68 01/16/17 11:00 98.0 70 17 101/53 91 01/16/17 11:00 68 01/16/17 10:00 127 01/16/17 09:00 139 01/16/17 08:00 153 01/16/17 07:50 88 21 01/16/17 07:00 72 01/16/17 07:00 98.5 144 18 113/58 91 01/16/17 06:01 146 01/16/17 05:00 145 01/16/17 04:01 144 01/16/17 03:45 97.9 140 20 115/56 91 01/16/17 03:43 20 01/16/17 03:00 142 01/16/17 02:00 141 01/16/17 01:00 178 01/16/17 00:01 89 01/15/17 23:45 98.3 88 24 122/59 92 01/15/17 23:00 88 01/15/17 22:00 87 01/15/17 21:00 76 01/15/17 20:15 98.4 77 24 110/54 97 01/15/17 20:00 79 01/15/17 19:50 96 Nasal Cannula 2.00 01/15/17 19:00 77 01/15/17 18:03 74 01/15/17 17:57 97.6 75 18 126/62 96 01/15/17 15:00 68 01/15/17 15:00 98.6 68 16 108/49 97 01/15/17 13:46 98.6 74 18 119/51 94 Labs: Laboratory Tests Test 01/16/17 04:46 White Blood Count 12.4 TH/MM3 (4.0-11.0) Red Blood Count 3.62 MIL/MM3 (4.50-5.90) Hemoglobin 11.6 GM/DL (13.0-17.0) Hematocrit 34.2 % (39.0-51.0) Mean Corpuscular Volume 94.7 FL (80.0-100.0) Mean Corpuscular Hemoglobin 32.2 PG (27.0-34.0) Mean Corpuscular Hemoglobin 34.0 % Concent (32.0-36.0) Red Cell Distribution Width 14.1 % (11.6-17.2) Platelet Count 84 TH/MM3 (150-450) Mean Platelet Volume 9.4 FL (7.0-11.0) Neutrophils (%) (Auto) 85.5 % (16.0-70.0) Lymphocytes (%) (Auto) 7.3 % (9.0-44.0) Monocytes (%) (Auto) 7.0 % (0.0-8.0) Eosinophils (%) (Auto) 0.0 % (0.0-4.0) Basophils (%) (Auto) 0.2 % (0.0-2.0) Neutrophils # (Auto) 10.6 TH/MM3 (1.8-7.7) Lymphocytes # (Auto) 0.9 TH/MM3 (1.0-4.8) Monocytes # (Auto) 0.9 TH/MM3 (0-0.9) Eosinophils # (Auto) 0.0 TH/MM3 (0-0.4) Basophils # (Auto) 0.0 TH/MM3 (0-0.2) CBC Comment AUTO DIFF Differential Comment AUTO DIFF CONFIRMED Platelet Estimate LOW (NORMAL) Platelet Morphology Comment NORMAL (NORMAL) Sodium Level 135 MEQ/L (136-145) Potassium Level 3.9 MEQ/L (3.5-5.1) Chloride Level 100 MEQ/L (98-107) Carbon Dioxide Level 27.4 MEQ/L (21.0-32.0) Anion Gap 8 MEQ/L (5-15) Blood Urea Nitrogen 26 MG/DL (7-18) Creatinine 1.03 MG/DL (0.60-1.30) Estimat Glomerular Filtration 72 ML/MIN (>89) Rate Random Glucose 147 MG/DL (74-106) Calcium Level 8.1 MG/DL (8.5-10.1) Magnesium Level 2.3 MG/DL (1.5-2.5) Result Diagram: 01/16/1744501/16/17445 (1) Aortic stenosis (2) s/p mini AVR Plan: chest tube dc on ASA, start plavix aggressive pulm toileting OOB, ambulate (3) Diabetes mellitus Plan: resume metformin diabetic diet consult tobacco prevention health educator (4) Obstructive sleep apnea Plan: has CPAP , but not using at home (5) History of prostate cancer (6) Hyperlipemia Plan: statin (7) Afib Plan: pt went into afib RVR amiodarone bolus given last night , then converted , went back into afib RVR this am additional bolus given, then started on po amiodarone 400mg q8hr start low dose BB later if tolerates Noy Munoz Jan 16, 2017 12:16
--- NOTE | 2017-01-16 12:21 | HHI.FF ---
Face to Face Verification Diagnosis: (1) Aortic stenosis (2) Diabetes mellitus (3) Obstructive sleep apnea (4) History of prostate cancer (5) s/p mini AVR (6) Afib Physical Therapy Order: Evaluate and Treat Home Health Nursing Order: Signs/symptoms of disease process Diabetic education Wound care and dressing changes Nursing assessment with vital signs Instructions: Incentive spirometry Q1 hr x 10, while awake, also use acapella device hourly whole awake chest wall Precautions: NO pushing or pulling, ( pt must use chest pillow to support chest with all activities and with coughing Daily incision care: ok to shower daily, starting 01/18/17 no tub bath. Wash all incisions with liquid dial soap, clean wash cloth to each site, rinse and pat dry. Observe for any signs of infection, such as drainage which is dark yellow, caruso, green or foul smelling. Immediately report to the surgeon any drainage from the chest incision, or legs, and for any abnormal drainage from the chest tube sites. Notify surgeon if any temp > 101.5 degrees F. When specialty dressing removed/ or if you do not have one, continue to shower daily as above, then rinse and pat incision dry and paint with betadine daily x 5 days. Allow steri strips to fall off if you have any. Avoid lotions, creams, salves, oils, etc. for the first month For Dr. Woo patients , please obtain CBC, BMP, PA & Lat CXR in 2 weeks, results to Dr. Woo ( prescription will be given) ( ) (Tele: [phone]) , Valve replacement pts will need 2decho in 2 weeks with results to Dr. Woo . Please obtain 2 d echo at your occupancy specialist office if possible F/U appointment: as per AL instructions: PCP in 2 weeks, CV surgeon 2 weeks, Vegetable [employer] Worker 3-4 weeks For any questions regarding incisions/ dressing / meds / post op care or above Symptoms, Friday 8am-5pm Heart & Vascular Surgery Office ( Dr. Jessica & Dr. Woo), After Hours / Nights (5pm -8am) Weekends and Holidays Please call [facility] Cardiac [facility] ([facility]) Charge Nurse I have seen patient Harjit Cloud on 01/16/17. My clinical findings support the need for the requested home health care services because: Deconditioned w/ increased weakness I certify that my clinical findings support that this patient is homebound because: Post-op weakness Nyo Munoz Jan 16, 2017 12:21
[2017-01-16] MEDS: CLOPIDOGREL 75 MG TAB PO SCH (17:17)
[2017-01-16] MEDS: METOPROLOL TARTRATE 25 MG TAB PO SCH (21:23)
[2017-01-16] MEDS: SENNOSIDES 8.6 MG TAB PO SCH (21:24)
[2017-01-16] MEDS: ATORVASTATIN 40 MG TAB PO SCH (21:24)
[2017-01-17] VITALS (15 sets, daily range): BP systolic 121–150; BP diastolic 58–74; PULSE 61–68; RESP 18–20; TEMP 98–99.4; O2SAT 92–100
[2017-01-17] MEDS: PANTOPRAZOLE SOD 40 MG DELAYED RELEASE TAB PO SCH (05:22)
[2017-01-17] MEDS: AMIODARONE 200 MG TAB PO SCH ×2 (05:22→13:45)
[2017-01-17 06:28] LABS: BICARBONATE 28.7 MEQ/L (21.0-32.0); MAGNESIUM 2.4 MG/DL (1.5-2.5); POTASSIUM 4.1 MEQ/L (3.5-5.1)
[2017-01-17] MEDS: INSULIN ASPART SUPPLEMENTAL SCALE SQ SCH ×2 (06:35→11:05)
--- NOTE | 2017-01-17 06:58 | RADRPT ---
EXAM DATE/TIME: 01/17/2017 05:54 [place] COMPARISON: CHEST SINGLE AP, January 15, 2017, 4:09. INDICATIONS : Status post chest tube removal. MEDICAL HISTORY : None. SURGICAL HISTORY : CABG ENCOUNTER: Subsequent ACUITY: 1 week PAIN SCORE: 0/10 LOCATION: chest FINDINGS: The cardiac silhouette is enlarged in transverse diameter. The chest tube on the right has been remov ed. There is no evidence of pneumothorax. There is subsegmental atelectasis in the both bases. CONCLUSION: 1. There is no evidence of pneumothorax. Dhruv Calvert MD on January 17, 2017 at 6:56 Board Certified Radiologist. This report was verified electronically.
[2017-01-17] MEDS: RESP: ALBUTEROL 2.5 MG/IPRATROPIUM 0.5 MG NEB (SCH) NEB (07:48)
[2017-01-17] MEDS: CLOPIDOGREL 75 MG TAB PO SCH (08:31)
[2017-01-17] MEDS: MAGNESIUM HYDROXIDE SUSP 30 ML CUP PO SCH (08:31)
[2017-01-17] MEDS: DOCUSATE SODIUM 100 MG CAP PO SCH (08:31)
[2017-01-17] MEDS: METOPROLOL TARTRATE 25 MG TAB PO SCH (08:31)
[2017-01-17] MEDS: POLYETHYLENE GLYCOL 17 GM PKG PO SCH (08:31)
[2017-01-17] MEDS: metFORMIN HCL 500 MG TAB PO SCH (08:31)
[2017-01-17] MEDS: MULTIVITAMINS/MINERALS THERAPEUTIC TAB PO SCH (08:32)
[2017-01-17] MEDS: INSULIN DETEMIR 100 UNITS/ML VIAL SQ SCH (08:32)
[2017-01-17] MEDS: ASPIRIN EC 81 MG TABEC PO SCH (08:32)
[2017-01-17] MEDS: LORATADINE 10 MG TAB PO SCH (08:34)
[2017-01-17] MEDS: SODIUM CHLORIDE 0.9% FLUSH 5 ML FLUSH IV FLUSH SCH (08:36)
[2017-01-17] MEDS ORDERED: DOCU1CAP39 PO (10:06)
[2017-01-17] MEDS ORDERED: PLAV75TA29 PO (10:06)
[2017-01-17] MEDS ORDERED: AMIO200T PO (10:06)
[2017-01-17] MEDS ORDERED: THERM PO (10:06)
[2017-01-17] MEDS ORDERED: METO25TA3 PO (10:06)
[2017-01-17] MEDS ORDERED: PERC5TAB12 PO (13:02)
--- NOTE | 2017-01-17 13:49 | HHI.DS ---
Discharge Summary Admission Date Jan 14, 2017 at 05:41 Discharge Date: Jan 17, 2017 Admitting Diagnosis severe aortic stenosis (1) Diabetes mellitus Diagnosis: Principal (2) Hyperlipemia Diagnosis: Principal (3) Obstructive sleep apnea Diagnosis: Principal (4) History of prostate cancer Diagnosis: Principal (5) Afib Diagnosis: Principal (6) s p mini AVR Diagnosis: Secondary Procedures 01/14 Minimally invasive AVR with a 25 Oneil Intuity Tissue valve DEX Left femoral cutdown for cannulation Femoral-femoral CPB Brief History 71 male/ hx of severe , underwent LHC&RHC by Dr Leggett, normal coronaries, EF 65%, admitted as outpt underwent: Minimally invasive AVR with a 25 Oneil Intuity Tissue valve DEX Left femoral cutdown for cannulation Femoral-femoral CPB hx DM, HTN, prostate CA, SHARAN CBC/BMP: 01/16/17 0446 01/17/17 0500 Significant Findings Laboratory Tests Test 01/15/17 01/16/17 01/17/17 04:55 04:46 05:00 White Blood Count 16.1 TH/MM3 12.4 TH/MM3 (4.0-11.0) (4.0-11.0) Red Blood Count 4.00 MIL/MM3 3.62 MIL/MM3 (4.50-5.90) (4.50-5.90) Hemoglobin 12.9 GM/DL 11.6 GM/DL (13.0-17.0) (13.0-17.0) Hematocrit 37.9 % 34.2 % (39.0-51.0) (39.0-51.0) Platelet Count 106 TH/MM3 84 TH/MM3 (150-450) (150-450) Chloride Level 110 MEQ/L (98-107) Blood Urea Nitrogen 19 MG/DL (7-18) 26 MG/DL (7-18) Estimat Glomerular Filtration 88 ML/MIN (>89) 72 ML/MIN (>89) Rate Random Glucose 154 MG/DL 147 MG/DL 142 MG/DL (74-106) (74-106) (74-106) Neutrophils (%) (Auto) 85.5 % (16.0-70.0) Lymphocytes (%) (Auto) 7.3 % (9.0-44.0) Neutrophils # (Auto) 10.6 TH/MM3 (1.8-7.7) Lymphocytes # (Auto) 0.9 TH/MM3 (1.0-4.8) Platelet Estimate LOW (NORMAL) Sodium Level 135 MEQ/L (136-145) Calcium Level 8.1 MG/DL 7.9 MG/DL (8.5-10.1) (8.5-10.1) Imaging Last Impressions Chest X-Ray 01/17/17 0600 Signed Impressions: Service Date/Time: Tuesday, January 17, 2017 05:54 - CONCLUSION: 1. There is no evidence of pneumothorax. Dhruv Calvert MD PE at Discharge GENERAL: SKIN: Warm and dry./ incision intact and well approximated right upper chest dressing over chest tube teamsite developer: Normocephalic. EYES: No scleral icterus. No injection or drainage. NECK: Supple, trachea midline. No JVD or lymphadenopathy. CARDIOVASCULAR: Regular rate and rhythm without murmurs, gallops, or rubs. RESPIRATORY: Breath sounds equal bilaterally. No accessory muscle use. GASTROINTESTINAL: Abdomen soft, non-tender, nondistended. MUSCULOSKELETAL: No cyanosis, or edema. BACK: Nontender without obvious deformity. No CVA tenderness. Hospital Course surgery : 01/14 Minimally invasive AVR with a 25 Oneil Elite Tissue valve, DEX , Left femoral cutdown for cannulation, Femoral-femoral CPB 4600 crystalloid, cellsaver 1800cc, 250EBL, 1600urine , extubated post surgery 6 hr surgery + 3 kg 01/15 up in chair, weaning off insulin gtt HR sinus bruce, BP stable gentle diuresis , OOB , aggressive pulm toileting start plavix tommorow on baby ASA chest tube drained 184cc/ 12 hr transfer to stepdown 01/16 doing well on room air chest tube removed 01/17 stable for dc continue meds, HHC f/u 2 weeks Pt Condition on Discharge: Good Discharge Disposition: Disch w/ Home Health Serv Discharge Instructions DIET: Follow Instructions for: Heart Healthy Diet, Diabetic Diet Activities you can perform: Full Weight Bearing, Shower Only-No Bath Activities to avoid: Weight Bearing, Strenuous Activity, Driving Additional Activity Instructio: no lifting >8 lbs or gallon of milk no driving Follow up Referrals: Cardiology with Ridge Leggett MD PCP Follow-up with [facility] Surgical with Diana Woo MD New Orders: 2D ECHO - 2 Weeks BASIC METABOLIC PROF - 2 Weeks CBC NO DIFF - 2 Weeks X-RAY CHEST PA & LAT - 2 Weeks New Medications: Amiodarone (Amiodarone) 200 Mg Tab 400 MG PO BID heart rhythm #90 Ref 1 TAB Clopidogrel (Plavix) 75 Mg Tab 75 MG PO DAILY Blood Clot Prevention #30 Ref 2 TAB Docusate Sodium (Dok) 100 Mg Cap 100 MG PO DAILY Constipation #30 CAP Metoprolol Tartrate (Metoprolol Tartrate) 25 Mg Tab 12.5 MG PO Q12HR Blood Pressure Management #60 TAB Multiple Vitamins W/ Minerals (Thera M Plus) 1 Tab 1 TAB PO DAILY multi vitamin #30 TAB Continued Medications: Aspirin (Aspirin) 81 Mg Tabdr 81 MG PO DAILY TAB Atorvastatin (Atorvastatin) 40 Mg Tab 40 MG PO HS Cholesterol Management #30 Ref 0 TAB Loratadine (Claritin) 10 Mg Tab 10 MG PO DAILY Allergy Management Ref 0 TAB Metformin (Metformin) 500 Mg Tab 500 MG PO BIDPC With meals Blood Sugar Management #60 Ref 0 TAB Multiple Vitamins W/ Minerals (Multivitamin Adults) 1 Tab 1 TAB PO DAILY Nutritional Supplement Ref 0 TAB Oxycodone-Acetaminophen (Percocet) 5-325 mg Tab 1 TAB PO Q6H PRN PAIN Ref 0 TAB Vitamin E (Vitamin E) 400 Unit Tab 400 UNITS PO DAILY Nutritional Supplement Ref 0 TAB Discontinued Medications: Enalapril (Enalapril) 5 Mg Tab 5 MG PO DAILY #30 Ref 0 TAB Meloxicam (Meloxicam) 15 Mg Tab 15 MG PO DAILY Arthritis Pain #30 Ref 0 TAB Noy Munoz Jan 17, 2017 13:49
== END 2017-01-17 15:44 | disposition home health service (06) | DRG 221 ==
LOC: HSDI 01-14 05:41 → HCVR 01-14 16:44 → HCPC 01-15 17:52
PROVIDERS: ADMIT Thoracic Surgery (Cardiothoracic Vascular Surgery); ATTEND Thoracic Surgery (Cardiothoracic Vascular Surgery)
PROC: 5A1221Z Performance of Cardiac Output, Continuous (ICD-10-PCS; 2017-01-14)
PROC: 02RF08Z Replacement of Aortic Valve with Zooplastic Tissue, Open Approach (ICD-10-PCS; principal; 2017-01-14 08:40)
PROC: B246ZZ4 Ultrasonography of Right and Left Heart, Transesophageal (ICD-10-PCS; 2017-01-14 08:40)
DX: I35.0 Nonrheumatic aortic (valve) stenosis (principal); I48.91 Unspecified atrial fibrillation; E11.9 Type 2 diabetes mellitus without complications; G47.33 Obstructive sleep apnea (adult) (pediatric); E78.5 Hyperlipidemia, unspecified; Z85.46 Personal history of malignant neoplasm of prostate; Z79.84 Long term (current) use of oral hypoglycemic drugs; Z85.828 Personal history of other malignant neoplasm of skin; Z92.3 Personal history of irradiation
CPT/HCPCS: 36430; 71010; 76937; 80048; 82948; 83735; 85014; 85025; 85027; 86850; 86900; 86901; 86920; 88305; 88311; 93318; 94002; 94003; 94150; 94640; 94667; 94668; C1713; C9399; J0131; J0282; J0610; J0690; J1265; J1644; J1815; J1885; J2150; J2250; J2370; J2405; J2720; J2765; J2930; J3010; J3370; J3475; J3480; J7030; J7040; J7050; J7120; P9016; P9047